=== PATIENT | male | born 1970 | race Two or more races ===

== ENCOUNTER 2019-09-20 07:05 | Outpatient (CLI) | payer OTHER | END 2019-09-20 07:15 | disposition home or self-care (01) | LOC: NUCLEAR 07:05 | DX: M54.5 Low back pain (principal); M53.3 Sacrococcygeal disorders, not elsewhere classified | CPT/HCPCS: 78315; A9503 ==

== ENCOUNTER 2024-03-12 11:50 | Outpatient (CLI) | payer OTHER | END 2024-03-12 11:57 | disposition home or self-care (01) | LOC: RAD 11:50 | PROVIDERS: ATTEND Surgery | DX: Z01.810 Encounter for preprocedural cardiovascular examination (principal) ==

== ENCOUNTER 2024-08-22 07:43 | Outpatient (CLI) | payer OTHER | END 2024-08-22 07:55 | disposition home or self-care (01) | LOC: TOM 07:43 | DX: R10.13 Epigastric pain (principal); R19.4 Change in bowel habit ==

== ENCOUNTER 2025-01-17 18:10 | Emergency (ER) | payer OTHER ==
[~2025-01-17] VITALS: Ht 165.1 cm; Wt 70.3 kg
[2025-01-17] MEDS ORDERED: PRILOSEC OTC20 MG PO (18:40)
[2025-01-17] MEDS ORDERED: ZYRTEC PO (18:41)
[2025-01-17] MEDS ORDERED: CEFTRIAXONE SODIUM 2,000 MG VIAL IV STA (19:02)
[2025-01-17] MEDS ORDERED: KETOROLAC TROMETHAMINE 30 MG VIAL IM STA (19:02)
[2025-01-17] MEDS ORDERED: KETOROLAC TROMETHAMINE 30 MG VIAL ONE (19:24)
[2025-01-17] MEDS ORDERED: CEFTRIAXONE SODIUM 2,000 MG VIAL ONE (19:25)
[2025-01-17 19:57] LABS: BASO % 0.3 % (0.1-1.2); EOS # 0.17 (0.04-0.54); EOS % 1.7 % (0.7-7.0); LYMPH # 2.50 (1.18-3.74); LYMPH % 24.7 % (19.3-53.1); MEAN PLATELET VOLUME 8.90 fl (9.4-12.4); MONO # 0.98 (0.24-0.82); MONO % 9.7 % (4.7-12.5); NEUT # 6.39 (1.56-6.13); NEUT % 63.2 % (34.0-71.1); RED CELL DISTRIBUTION WIDTH 12.8 % (11.6-14.4)
[2025-01-17 20:32] LABS: BUN CREA RATIO 19.0 (7.0-25.0); CREATININE SERUM 0.96 mg/dL (0.70-1.30); GFR 81.93; GLUCOSE FASTING 110.0 mg/dL (65-100); OSMOLALITY SERUM 286.0 MOSM/KG (275-295)
[2025-01-17] MEDS ORDERED: NABUMETONE500 MG PO (20:46)
[2025-01-17] MEDS ORDERED: AMOX-CLAV 875-1 EACH PO (20:46)
[2025-01-17] MEDS ORDERED: INTESTINEX680 M1 PO (20:46)
== END 2025-01-17 22:25 | disposition home or self-care (01) ==
LOC: ER 18:11
PROVIDERS: General Practice
DX: T81.49XA Infection following a procedure, other surgical site, initial encounter (principal); N48.22 Cellulitis of corpus cavernosum and penis

== ENCOUNTER 2025-01-19 15:35 | Emergency (ER) | payer OTHER ==
[~2025-01-19] VITALS: Ht 165.1 cm; Wt 70.3 kg
[~2025-01-19 15:35] MED LIST: AMOX-CLAV 875-1 EACH PO; INTESTINEX680 M1 PO; NABUMETONE500 MG PO; PRILOSEC OTC20 MG PO; ZYRTEC PO
[2025-01-19] MEDS ORDERED: CEFTRIAXONE SODIUM 1,000 MG VIAL IM ONE (16:45)
[2025-01-19] MEDS ORDERED: KETOROLAC TROMETHAMINE 60 MG VIAL IM ONE ×2 (16:45→17:40)
[2025-01-19] MEDS ORDERED: CEFTRIAXONE SODIUM 1,000 MG VIAL ONE (17:41)
[2025-01-19] MEDS ORDERED: LIDOCAINE HCL 1% 10ML VIAL ONE (17:43)
[2025-01-19 18:17] LABS: BASO % 0.5 % (0.1-1.2); EOS # 0.13 (0.04-0.54); EOS % 1.0 % (0.7-7.0); LYMPH # 2.05 (1.18-3.74); LYMPH % 15.0 % (19.3-53.1); MEAN PLATELET VOLUME 9.30 fl (9.4-12.4); MONO # 1.17 (0.24-0.82); MONO % 8.6 % (4.7-12.5); NEUT # 10.20 (1.56-6.13); NEUT % 74.5 % (34.0-71.1); RED CELL DISTRIBUTION WIDTH 13.1 % (11.6-14.4)
[2025-01-19 18:50] LABS: ALT/SGPT 29 U/L (12-78); AST/SGOT 20 U/L (15-37); BILIRUBIN TOTAL 0.87 mg/dL (0.3-1.2); BUN CREA RATIO 24 (7.0-25.0); CREATININE SERUM 1.00 mg/dL (0.70-1.30); GFR 78.16; GLOBULINA 3.1 G/DL (2.4-3.5); GLUCOSE FASTING 100 mg/dL (65-100); OSMOLALITY SERUM 289 MOSM/KG (275-295)
[2025-01-19 20:30] LABS: ERYTHROCYTE SEDIMENTATION RATE < 1 mm/hr (0-20)
[2025-01-19] MEDS ORDERED: CEFUROXIME500 MG PO (22:54)
[2025-01-19] MEDS ORDERED: PEPCID AC20 MG PO (22:54)
== END 2025-01-19 22:57 | disposition home or self-care (01) ==
LOC: ER 15:35
PROVIDERS: General Practice
DX: N48.29 Other inflammatory disorders of penis (principal); T81.49XA Infection following a procedure, other surgical site, initial encounter; K21.9 Gastro-esophageal reflux disease without esophagitis